=== PATIENT | female | born 1990 | race Caucasian/White ===

== ENCOUNTER 2020-02-20 06:02 | Inpatient (IN) | payer BC, SELFPAY ==
[2020-02-20] VITALS (167 sets, daily range): BP systolic 81–137; BP diastolic 27–89; PULSE 70–159; RESP 18; TEMP 36.8–37.7; O2SAT 82–100; BMI 39.3
[2020-02-20 07:07] LABS: Basophils Percent Auto 0.2 % (0.2-1.2); Eosinophils Absolute Auto 0.3 K/mm3 (0-0.3); Eosinophils Percent Auto 2.7 % (0-4.4); Hematocrit 32.9 % (37.0-47.0); Hemoglobin 10.4 g/dL (12.0-15.0); Immature Granulocyte Percent A 0.8 % (0-0.5); Lymphocytes Absolute Auto 2.26 K/mm3 (0.9-3.2); Mean Corpuscular HGB Conc 31.6 g/dl (32-36); Mean Corpuscular Hemoglobin 26.3 pg (26-34); Mean Corpuscular Volume 83.1 fl (80-100); Mean Platelet Volume 10.3 fl (7.4-10.4); Monocytes Absolute Auto 0.7 K/mm3 (0.1-0.6); Monocytes Percent Auto 5.7 % (2.6-8.5); Neutrophils Absolute Auto 9.1 K/mm3 (1.3-6.7); Neutrophils Percent Auto 72.6 % (45.5-73.1); Platelet Count Result 327 k/mm3 (150-375); Red Blood Count 3.96 M/mm3 (4.2-5.4); Red Cell Distribution Width 14.2 % (11.5-14.5); White Blood Count 12.5 K/mm3 (4.5-10.0)
[2020-02-20] MEDS: LACTATED RINGERS 1,000 ML 125 ML IV CONT ×3 (07:16→11:12)
[2020-02-20] MEDS: OXYTOCIN 30 UNITS/NS 500 ML 30 UNITS/500 ML BAG IV CONT (07:17)
--- NOTE | 2020-02-20 07:20 | LDADM ---
This patient, ANY CARSON, was admitted to Labor/Delivery/Recovery 107 on 02/20/20 at 06:02. Plans for labor, pain management and were discussed with patient. Patient/family oriented to hospital policies and general routines including ID bracelet, bed and alarms, visiting hours, pain management, procedures, bathroom and other care routines, personal items, smoking policy, room service/diet and guest tray routines, security routines, and visiting hours. Patient/Family are encouraged to report perceived risks to care and to ask questions if they do not understand what they are told or what they should do. See OBIX for further documentation.
--- NOTE | 2020-02-20 11:01 | WPDANESEPPF ---
Anes - Initial Pre Proc Eval Date/Time: 02/20/20 11:01 Surgeon: Romel Santoro MD Pre Op Diagnosis: Induction of Labor Patient Data Age: 29 Gender: F Height: 5 ft 6 in Weight: 110.5 kg Last Vital Signs Temp 36.8 C 02/20/20 09:30 Pulse 87 02/20/20 10:59 Resp 18 02/20/20 07:17 BP 106/55 L 02/20/20 10:59 Pulse Ox 98 02/20/20 10:56 Allergies Allergy/AdvReac Type Severity Reaction Status Date / Time adhesive tape Allergy Itching Verified 01/29/20 15:46 latex Allergy Itching Verified 01/29/20 15:46 Penicillins Allergy Hives Verified 01/29/20 15:46 Home Medications Medication Instructions Recorded Confirmed Type PNV cmb#95-ferrous fumarate-FA 1 tablet PO DAILY 02/20/20 02/20/20 History [] cetirizine [Zyrtec] 10 mg PO DAILY PRN 02/20/20 02/20/20 History Laboratory Tests 02/20/20 02/20/20 02/20/20 06:58 06:58 06:58 WBC 12.5 K/mm3 H K/mm3 (4.5-10.0) RBC 3.96 M/mm3 L M/mm3 (4.2-5.4) Hgb 10.4 g/dL L g/dL (12.0-15.0) Hct 32.9 % L % (37.0-47.0) MCV 83.1 fl fl (80-100) MCH 26.3 pg pg (26-34) MCHC 31.6 g/dl L g/dl (32-36) RDW 14.2 % % (11.5-14.5) Plt Count 327 k/mm3 k/mm3 (150-375) MPV 10.3 fl fl (7.4-10.4) Immature Gran % (Auto) 0.8 % H % (0-0.5) Neut % (Auto) 72.6 % % (45.5-73.1) Lymph % (Auto) 18.0 % L % (18.3-44.2) [place] % (Auto) 5.7 % % (2.6-8.5) Eos % (Auto) 2.7 % % (0-4.4) Baso % (Auto) 0.2 % % (0.2-1.2) Lymph # (Auto) 2.26 K/mm3 K/mm3 (0.9-3.2) [place] # (Auto) 0.7 K/mm3 H K/mm3 (0.1-0.6) Eos # (Auto) 0.3 K/mm3 K/mm3 (0-0.3) Baso # (Auto) 0.0 K/mm3 K/mm3 (0.0-0.1) Abs Immat Gran (auto) 0.10 K/mm3 H K/mm3 (0.00-0.031) Absolute Neuts (auto) 9.1 K/mm3 H K/mm3 (1.3-6.7) Absolute Nucleated RBC 0.0 K/mm3 K/mm3 (0.0-0.012) Nucleated RBC % 0.0 % % (0.0-0.2) RPR Pending Blood Type A Positive Antibody Screen Negative Patient hx anesthesia problems: other (agitation) Family hx anesthesia problems: none [facility] Family History Family History Sibling Congenital heart anomaly Epilepsy Mentally challenged Social History Social History Smoking status: Never smoker Second hand tobacco smoke exposure: No Substance use: never Spiritual care concerns: No Anes - Eval Final PreProcedure Day of Procedure 02/20/20 11:01 Patient weight: obese Heart: regular rate and rhythm Lungs: clear to auscultation Neurological: alert and oriented ASA classification: II Emergent: no Anesthetic plan: proceed Anesthesia type and monitoring: regional epidural and standard monitoring Informed Consent: The patient's anesthetic plan and its attendant risks and benefits were discussed with the patient/family/POA. Questions were solicited and answers provided to the satisfaction of the patient/family/POA.
[2020-02-20] MEDS: ONDANSETRON INJ 4 MG/2 ML VIAL IV PUSH (13:33)
--- NOTE | 2020-02-20 16:38 | WPDHPUPDATE1 ---
History and Physical Update Update Date/Time: 02/20/20 16:38 History and Physical has been reviewed, including an updated exam of the patient. There are NO changes in the patient's condition. Risks, benefits, and alternatives have been discussed and questions answered. Patient agrees to proceed with procedure.
--- NOTE | 2020-02-20 16:38 | WPDOBADMIT ---
Obstetrics - Admit Note Admission Note: record reviewed. No pertinent additions to the history and/or any subsequent changes in the physical findings that are not consistent with the expected course of the were found. Additions to the history and/or subsequent changes in the physical findings follow. None.
--- NOTE | 2020-02-20 16:38 | PM.OBPRVD ---
OB - Delivery Note Procedure Route of delivery: Episiotomy description: None Laceration description: None Specimen: No Estimated blood loss (mL): 200 Anesthesia type: Epidural Narrative: Patient prepped and draped in usual sterile manner this procedure. Maternal expulsive efforts readily delivered vertex followed by the rest of baby difficulty. Cord was clamped and cut placenta delivered spontaneously. Cervix vagina vulva were inspected lacerations or tears. Uterus was well contracted hemostatic. Postop condition mother baby both excellent [place] Baby Weeks of gestation at delivery: 39 gender: Female Weight (pounds): 7 Weight (ounces): 2 score one minute: 9 score five minutes: 9
[2020-02-20] MEDS: BENZOCAINE 20% AER SPR (*SP) 56 GM CAN 1 SPRAY TOPICAL (17:04)
[2020-02-20] MEDS: OXYTOCIN 30 UNITS/NS 500 ML 30 UNITS/500 ML BAG 125 UNITS IV CONT (17:04)
[2020-02-20] MEDS: WITCH HAZEL 40 PADS 1 PAD TOPICAL (17:04)
[2020-02-20] MEDS: ACETAMINOPHEN 325 MG TABLET 650 MG PO (23:17)
[2020-02-21 02:37] VITALS: BP 110/60; PULSE 97; RESP 18; TEMP 37.6; O2SAT 97
[2020-02-21] MEDS: IBUPROFEN 600 MG TABLET PO ×3 (03:49→16:06)
[2020-02-21 04:15] LABS: Hematocrit 32.8 % (37.0-47.0); Hemoglobin 10.4 g/dL (12.0-15.0)
[2020-02-21 07:56] LABS: Rapid Plasma Reagin Non-Reactive (NonReactive)
[2020-02-21] MEDS: MULTIVIT/MIN/PREN/FOL AC/IRON TABLET 1 TAB PO (09:57)
[2020-02-21] MEDS: DOCUSATE SODIUM 100 MG CAPSULE PO ×2 (09:57→16:06)
[2020-02-21 11:22] VITALS: BP 96/57; PULSE 75; RESP 18; TEMP 36.6; O2SAT 96
--- NOTE | 2020-02-21 12:31 | PM.OBPNVD ---
OB - PN: Subj Subjective Date/time seen: 02/21/20 12:31 Interval history: 29yo s/p on 02/19 Patient comments: no complaints, pain well controlled and tolerating diet Geraldine baby status: doing well and nursing well feeding status: exclusively breast feeding Narrative: Doing well, no complaints. tolerating diet, ambulating. Would like to go home after 24hrs. OB - PN: Obj Data Labs CBC & Chem 7: 02/21/20 03:51 Labs: Laboratory Results - last 24 hr 02/20/20 02/21/20 06:58 03:51 Hgb 10.4 L Hct 32.8 L RPR Non-reactive OB - PN A/P Assessment and Plan (1) (normal spontaneous vaginal delivery): Code(s): O80 - Encounter for full-term uncomplicated delivery Status: Acute Assessment and Plan: Routine post care pain management ambulate Ok for DC home after 24hrs Time Spent With Patient Time: Total time spent is greater than 50% in coordination of care (as documented) at patient's floor/unit and/or counseling patient: Exam Const: General: comfortable, no acute distress and alert Orientation/consciousness: patient oriented x3 Resp: Effort & Inspection: normal respiratory effort Cardio: Rate: regular rate GI: Other: soft, nontender, nondistended, fundus firm Psych: Appearance: grossly normal Mental Status: mental status grossly normal Affect: normal affect Attitude: cooperative Judgement: Good judgement present (Psych)
--- NOTE | 2020-02-21 12:33 | P.DS_ITS ---
DS: Admitting Diagnosis Admitting Diagnosis Admitting Diagnosis: Induction of labor, term DS: Discharge Diagnosis Discharge Diagnosis (1) (normal spontaneous vaginal delivery): Code(s): O80 - Encounter for full-term uncomplicated delivery Status: Acute OB - DS: Summary OB Procedures : None OB Procedures Intrapartum: Spontaneous Vag Delivery OB Procedures: : None Peripartum Data complications: none Status at Discharge Overall status at discharge: patient is progressing back to baseline Time Spent with Patient Time attestation: Total time spent providing and/or coordinating discharge services: Exam Const: General: comfortable, no acute distress and alert Orientation/consciousness: patient oriented x3 Resp: Effort & Inspection: normal respiratory effort Cardio: Rate: regular rate GI: Other: soft, nontender, nondistended, fundus firm Neuro: General: patient oriented x3 Psych: Appearance: grossly normal Mental Status: mental status grossly normal Affect: normal affect Attitude: cooperative Judgement: Good judgement present (Psych) DS: Data Data Completed and Pending Labs on day of discharge: Labs from last 24 hours 02/21/20 02/20/20 03:51 06:58 Hgb 10.4 L Hct 32.8 L RPR Non-reactive Discharge Plan Discharge Attending physician on discharge: Romel Santoro Discharging Clinician: Chato Piedra Patient Disposition: Home, Self-Care Activity: as tolerated Diet: regular Patient Instructions: Antibiotic Form Stand Alone Forms: General Discharge Information Follow-up/Referrals: Romel Santoro MD [Physician] - Discharge Medications: New docusate sodium 100 mg Capsule 100 mg PO BID PRN (Reason: Constipation) Qty: 60 RF: 0 ibuprofen 600 mg Tablet 600 mg PO Q6H PRN (Reason: Cramping) Qty: 60 RF: 0 Continued PNV cmb#95-ferrous fumarate-FA [] 28 mg iron- 800 mcg Tablet 1 tablet PO DAILY RF: 0 Zyrtec 10 mg Capsule 10 mg PO DAILY PRN (Reason: Allergy Symptoms) RF: 0 Date of admission: 02/20/20 06:02 Primary Care Provider: PHYSICIAN,[facility] SWITCH ADJUSTER Admitting Provider: Romel Santoro Attending physician on admission: Romel Santoro
--- NOTE | 2020-02-21 13:30 | PC.NURSE ---
Consulted with patient, upon entering mother has to breast in shallow latch reporting tenderness with feeding. Reviewed is shallow and may need assist obtaining and maintaining deep latch. Reviewed feeding cues, frequencies, duration of feedings, feeding elimination flow sheet, and signs of adequate intake. Demonstrated stimulation techniques to wake infant for feeding. . Reviewed positioning/alignment in cross cradle, holding breast in U hold and guided asymmetrical latch on. Infant was able to latch correctly. nursed eagerly, with steady draws and frequent swallowing noted. Reviewed signs of a correct latch, effective nursing and suck swallow ratio. was able to maintain latch without discomfort to mother. Nipple care reviewed. Demonstrated how to adjust latch more deeply while feeding. Instructed mother to call out for RN assistance if she is unable to latch infant for feeding or she has discomfort with nursing. Instructed feeding should be initiated three hours from start of last feeding or if feeding cues are noted before. Mother voiced understanding of information shared.
--- NOTE | 2020-02-21 14:48 | WPDANLDPN2 ---
Anes-Prog Note L&D Date/Time: 02/21/20 14:48 Comfortable throughout: labor and delivery Epidural/Spinal procedure site: clean & non-tender Neuro status: Neuro function grossly intact. Cardiovascular status: normal Respiratory status: normal Airway patency: baseline Mental status: baseline Post-Op hydration status: normal Vital Signs: Last Vital Signs Temp 97.9 F 02/21/20 11:22 Pulse 75 02/21/20 11:22 Resp 18 02/21/20 11:22 BP 96/57 L 02/21/20 11:22 Pulse Ox 96 02/21/20 11:22 I/O: Intake & Output 02/20/20 02/21/20 02/21/20 23:59 07:59 15:59 Intake Total 1100 Output Total 31 Balance 1069 Patient feedback: Patient satisfied with anesthetic care.
[2020-02-22 12:41] VITALS: BP 113/65; PULSE 80; RESP 20
== END 2020-02-21 18:35 | disposition home or self-care (01) | DRG 807 ==
LOC: ANHOB2 02-21 12:55 → ANHLDR 02-22 13:14 → ANHOB2 02-22 13:14
PROVIDERS: Admitting Provider Obstetrics & Gynecology; Visit Provider Obstetrics & Gynecology
DX: O99.214 Obesity complicating childbirth (principal); Z37.0 Single live birth; Z3A.39 39 weeks gestation of pregnancy; E66.9 Obesity, unspecified
CPT/HCPCS: 36415; 85014; 85018; 85025; 86592; 86850; 86900; 86901; A9270; J2405; J2590; J2795; J7120

== ENCOUNTER 2023-09-24 10:29 | Emergency (ER) | payer OTHER, SELFPAY ==
[2023-09-24 10:36] VITALS: BP 127/82; PULSE 85; RESP 18; TEMP 36.5; O2SAT 99
--- NOTE | 2023-09-24 11:02 | ED.GENADULT ---
HPI - General Adult General Chief complaint: Urogenital-Female Stated complaint: Urinary Problem Source: patient Mode of arrival: ambulatory Limitations: no limitations History of Present Illness HPI narrative: Patient presents for evaluation of urinary symptoms since yesterday. Symptoms urinary frequency, urgency, dysuria, low back pain and suprapubic pressure. Fever, chills, nausea, vomiting, vaginal discharge. She has an IUD so is not sure when her last period was. Related Data Home Medications Medication Instructions Recorded Confirmed levonorgestrel 21 mcg/24 hours (8 1 device intrauterine ONCE 09/24/23 09/24/23 yrs) 52 mg intrauterine device (Mirena) Allergies Allergy/AdvReac Type Severity Reaction Status Date / Time adhesive tape Allergy Itching Verified 09/24/23 10:46 latex Allergy Itching Verified 09/24/23 10:46 Penicillins Allergy Hives Verified 09/24/23 10:46 Review of Systems Review of Systems: CONSTITUTIONAL: Denies fever, chills, or sweats. EYES: Denies visual changes, redness, or discharge. ENT: Denies rhinorrhea, congestion, sore throat, or otalgia. CARDIOVASCULAR: Denies chest pain, palpitations, or edema. RESPIRATORY: Denies cough or dyspnea. GASTROINTESTINAL: Denies abdominal pain, nausea, vomiting, or diarrhea. GENITOURINARY: Reports urinary frequency, urgency and dysuria. SKIN: Denies rash or itching. MUSCULOSKELETAL: Reports low back pain. Denies joint pain, or myalgia. NEUROLOGIC: Denies headache, numbness, dizziness, or weakness. PSYCHIATRIC: Denies anxiety or depression. [facility] Past Medical History Medical History No pertinent past medical history Surgical History Surgical History No pertinent past surgical history Family History Family History Sibling Congenital heart anomaly Epilepsy Mentally challenged Social History Social History Smoking status: Never smoker Second hand tobacco smoke exposure: No Substance use: never Spiritual care concerns: No Exam Narrative: GENERAL: Well-appearing, well-nourished, and in no acute distress. HEAD: Normocephalic, atraumatic. EYES: PERRLA and EOMI. ENT: Nares clear, no rhinorrhea or epistaxis. Mucous membranes moist. Oropharynx without tonsillar hypertrophy exudate or other lesions. Bilateral TMs pearly banegas nonbulging NECK: Supple. No adenopathy or masses. No carotid bruits or JVD CHEST: Clear to auscultation. No respiratory distress. No wheezes rales or rhonchi HEART: Regular rate and rhythm. No murmur heard. Normal peripheral pulses. ABDOMEN: Soft, nontender, nondistended, normal active bowel sounds. EXTREMITIES: Normal range of motion. No edema. BACK: No CVA tenderness SKIN: Warm, dry, no rash. NEURO: No focal deficits. Alert and oriented x3. PSYCH: Normal mood and affect. Course Course Emergency Course: This is a 30-year-old female who presented for evaluation of urinary symptoms. She has leukocytes in her urine today. Will treat for UTI with Macrobid. Send urine for culture. Follow-up with primary provider. Go to the ER for worsening symptoms. Patient in agreement plan of care. Level of Care: Express Care Visit Vital Signs Vital signs: Vital Signs Temperature 36.5 C 09/24/23 10:36 Pulse Rate 85 09/24/23 10:36 Respiratory Rate 18 09/24/23 10:36 Blood Pressure 127/82 09/24/23 10:36 Pulse Oximetry 99 09/24/23 10:36 Oxygen Delivery Room Air 09/24/23 10:36 Temperature 36.5 C 09/24/23 10:36 Pulse Rate 85 09/24/23 10:36 Respiratory Rate 18 09/24/23 10:36 Blood Pressure 127/82 09/24/23 10:36 Pulse Oximetry 99 09/24/23 10:36 Oxygen Delivery Room Air 09/24/23 10:36 Medical Decision Making Vital Sign
== END 2023-09-24 11:21 | disposition home or self-care (01) ==
PROVIDERS: Emergency Provider Nurse Practitioner
DX: N39.0 Urinary tract infection, site not specified (principal); B96.20 Unspecified Escherichia coli [E. coli] as the cause of diseases classified elsewhere
CPT/HCPCS: 81003; 87077; 87086; 87186; 99203; G0463

== ENCOUNTER 2025-08-05 13:15 | Emergency (ER) | payer OTHER, SELFPAY ==
[2025-08-05 13:16] VITALS: BP 135/80; PULSE 91; RESP 18; TEMP 36.6; O2SAT 99
[2025-08-05 13:30] VITALS: BP 119/77; PULSE 86; RESP 17; O2SAT 97
[2025-08-05] MEDS: SODIUM CHLORIDE 0.9% IV 1,000 ML 999 ML IV CONT (13:36)
[2025-08-05 13:37] LABS: Hematocrit 42.3 % (35.0-49.0); Hemoglobin 14.0 g/dL (12.0-15.0); Immature Granulocyte Percent A 0.2 % (0.0-0.0); Lymphocytes Absolute Auto 2.28 K/mm3 (1.10-4.50); Mean Corpuscular HGB Conc 33.1 g/dL (32-36); Mean Corpuscular Hemoglobin 28.7 pg (27.0-31.0); Mean Corpuscular Volume 86.7 fL (78.0-102.0); Nucleated Red Blood Cells Absolute Auto 0.00 K/mm3 (0.00-0.00); Nucleated Red Blood Cells Perc 0.0 % (0-0.0); Platelet Count Result 420 K/mm3 (150-420); Red Blood Count 4.88 M/mm3 (4.20-5.40); White Blood Count 12.0 K/mm3 (4.8-10.8)
[2025-08-05 13:48] LABS: Add Urine Microscopic? YES; Appearance Urine Clear (Clear); Glucose Urine UA Negative (Negative); Leukocyte Esterase Ur Negative LEU/UL (Negative); Nitrate Urine Negative (Negative); Specific Grav Ur >= 1.030 (1.010-1.020)
[2025-08-05 13:52] LABS: Pregnancy On Board Control Positive
[2025-08-05 14:00] VITALS: BP 110/65; PULSE 80; RESP 17; O2SAT 99
[2025-08-05 14:30] VITALS: BP 109/70; PULSE 73; RESP 16; O2SAT 100
[2025-08-05 14:53] LABS: Alanine Aminotransferase 22 U/L (6-35); Albumin Level 4.7 g/dL (3.5-5.1); Alkaline Phosphatase 57 U/L (38-126); Anion Gap 14 mmol/L (4-12); Aspartate Amino Transferase 40 U/L (14-36); Blood Urea Nitrogen 13 mg/dL (7-17); Calcium 9.0 mg/dL (8.4-10.2); Carbon Dioxide 20 mmol/L (22-30); Chloride 111 mmol/L (98-107); Estimated CRCL calculation 99 ml/min; Estimated Glomerular Filt Rate > 60; Glucose 109 mg/dL (65-110); Osmolality Calculated 301 mOsm/kg (285-295); Potassium 3.8 mmol/L (3.4-5.0); Sodium 145 mmol/L (137-145); Total Protein 8.0 g/dL (6.3-8.2)
[2025-08-05 15:00] VITALS: BP 110/91; PULSE 76; RESP 16; O2SAT 99
--- NOTE | 2025-08-05 15:00 | ED.GENADULT ---
HPI - General Adult General Chief complaint: Abdominal Pain Stated complaint: abdominal pain Time Seen by Provider: 08/05/25 13:26 Source: patient Mode of arrival: ambulatory Limitations: no limitations History of Present Illness HPI narrative: 34-year-old otherwise healthy here with a complains of nausea, vomiting, diarrhea upper abdominal cramping on and off for past 4 days. She denies any fever or chills no recent antibiotic use. No other family member is sick. Denies being lightheaded or dizzy. Onset (ago): day(s) (4) Severity: mild Quality: aching Pain Consistency: intermittent Relieving factors: none Exacerbating factors: none Associated symptoms: denies other symptoms Treatments prior to arrival: none Related Data Home Medications ?Medication ?Instructions ?Recorded ?Confirmed ?Last Taken ?Type levonorgestrel (Mirena) 1 device intrauterine ONCE 09/24/23 01/08/25 Unknown History cetirizine 10 mg capsule (Zyrtec) 10 mg PO DAILY PRN 01/03/24 01/08/25 Unknown History semaglutide (weight loss) 0.25 0.25 mg subcut WEEKLY 01/08/25 01/08/25 Unknown History mg/0.5 mL subcutaneous pen injector (Wegovy) Allergies Allergy/AdvReac Type Severity Reaction Status Date / Time adhesive tape Allergy Itching Verified 08/05/25 13:16 latex Allergy Itching Verified 08/05/25 13:16 Penicillins Allergy Hives Verified 08/05/25 13:16 Review of Systems Review of Systems: All systems reviewed & are unremarkable except as noted in HPI and below Constitutional: Constitutional: Reports no additional constitutional complaints Eyes: Eyes: Reports no additional eye complaints ENT: Reports system reviewed and no additional complaints, except as documented Cardiovascular: Cardiovascular: Reports no additional cardiovascular complaints Respiratory: Respiratory: Reports no additional respiratory complaints Gastrointestinal: Gastrointestinal: Reports as per HPI Musculoskeletal: Musculoskeletal: Reports no additional musculoskeletal complaints Neurologic: Reports system reviewed and no additional complaints, except as documented [facility] Past Medical History Medical History Thyroid cyst (~2015) drained Mental disorder Anxiety No pertinent past medical history Surgical History Surgical History History of gynecological procedure (03/25/20) mirena iud insertion History of adenoidectomy History of tonsillectomy History of hysteroscopy (~2014) suction D&C missed AB History of hysteroscopy (~2012) suction D&C Missed AB No pertinent past surgical history Family History Family History Sibling Congenital heart anomaly Epilepsy Mentally challenged Grandparent Diabetes mellitus paternal grandmother Hypertension maternal and paternal grandparents Cerebrovascular accident paternal grandmother Acute myocardial infarction maternal grandmother Social History Social History (Updated 01/08/25 @ 08:30 by Elzbieta Almanzar [facility]) Smoking status: Never smoker Second hand tobacco smoke exposure: No Alcohol intake: former Alcohol use details: 1 a month Substance use: never Substance use type: does not use Do You Feel Safe in your Home?: Yes Lack of Transportation: No Lack of Food: Never True Current Housing: I Have Housing Concerned About Future Housing: No Difficulty Paying Gas/Electric Bills: No Difficulty Paying for Meds: No Currently Unemployed: No Education: High School Diploma/GED Difficulty w/ Childcare or Family Care: No Living arrangements: with family Additional living arrangements comments: 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 HEAD: Normocephalic, atraumatic. EYES: PERRLA and EOMI. ENT: Nares clear, no rhinorrhea or epistaxis. Mucous membranes moist. NECK: Supple. CHEST: Clear to auscultation. No respiratory distress. HEART: Regular rate and rhythm. No murmur heard. Normal peripheral pulses. ABDOMEN: Soft, nontender, nondistended, normal active bowel sounds. EXTREMITIES: Normal range of motion. No edema. SKIN: Warm, dry, no rash. NEURO: No focal deficits. Alert and oriented x3. PSYCH: Normal mood and affect. Course Course Emergency Course: Patient had no further episodes of nausea, vomiting or diarrhea was she was here in the ER I did fever L of normal saline she started feeling better informed her about the lab work. Advised her to drink more fluids as tolerated take Zofran as needed. Vital Signs Vital signs: Vital Signs Temperature 36.6 C 08/05/25 13:16 Pulse Rate 91 08/05/25 13:16 Respiratory Rate 18 08/05/25 13:16 Blood Pressure 135/80 08/05/25 13:16 Pulse Oximetry 99 08/05/25 13:16 Oxygen Delivery Room Air 08/05/25 13:16 Temperature 36.6 C 08/05/25 13:16 Pulse Rate 91 08/05/25 13:16 Respiratory Rate 18 08/05/25 13:16 Blood Pressure 135/80 08/05/25 13:16 Pulse Oximetry 99 08/05/25 13:16 Oxygen Delivery Room Air 08/05/25 13:16 Medical Decision Making Vital Signs Vital Signs: Vital Signs Temperature 36.6 C 08/05/25 13:16 Pulse Rate 91 08/05/25 13:16 Respiratory Rate 18 08/05/25 13:16 Blood Pressure 135/80 08/05/25 13:16 Pulse Oximetry 99 08/05/25 13:16 Oxygen Delivery Room Air 08/05/25 13:16 Temperature 36.6 C 08/05/25 13:16 Pulse Rate 91 08/05/25 13:16 Respiratory Rate 18 08/05/25 13:16 Blood Pressure 135/80 08/05/25 13:16 Pulse Oximetry 99 08/05/25 13:16 Oxygen Delivery Room Air 08/05/25 13:16 Lab Data Lab results reviewed: Yes I reviewed the patient's lab results. 08/05/25 13:30 08/05/25 13:30 Labs: Lab Results 08/05/25 Range/Units 13:30 WBC 12.0 H (4.8-10.8) K/mm3 RBC 4.88 (4.20-5.40) M/mm3 Hgb 14.0 (12.0-15.0) g/dL Hct 42.3 (35.0-49.0) % MCV 86.7 (78.0-102.0) fL MCH 28.7 (27.0-31.0) pg MCHC 33.1 (32-36) g/dL RDW 12.2 (11.6-14.4) % Plt Count 420 (150-420) K/mm3 MPV 10.8 (9.2-11.8) fl Immature Gran % (Auto) 0.2 H (0.0-0.0) % Neut % (Auto) 68.9 (50.0-70.0) % Lymph % (Auto) 19.1 (18.0-42.0) % [place] % (Auto) 5.4 (2.0-11.0) % Eos % (Auto) 6.1 H (1.0-6.0) % Baso % (Auto) 0.3 (0.0-1.0) % Lymph # (Auto) 2.28 (1.10-4.50) K/mm3 [place] # (Auto) 0.64 (0.10-0.90) K/mm3 Eos # (Auto) 0.73 H (0.02-0.50) K/mm3 Baso # (Auto) 0.04 (0.00-0.10) K/mm3 Abs Immat Gran (auto) 0.02 H (0.00-0.00) K/mm3 Absolute Neuts (auto) 8.24 H (1.70-7.20) K/mm3 Absolute Nucleated RBC 0.00 (0.00-0.00) K/mm3 Nucleated RBC % 0.0 (0-0.0) % Sodium 145 (137-145) mmol/L Potassium 3.8 (3.4-5.0) mmol/L Chloride 111 H (98-107) mmol/L Carbon Dioxide 20 L (22-30) mmol/L Anion Gap 14 H (4-12) mmol/L BUN 13 (7-17) mg/dL Creatinine 0.78 (0.7-1.0) mg/dL Estim Creat Clear Calc 99 ml/min Estimated GFR > 60 (59 - ) Glucose 109 (65-110) mg/dL Calculated Osmolality 301 H (285-295) mOsm/kg Calcium 9.0 (8.4-10.2) mg/dL Total Bilirubin 1.7 H (0.2-1.3) mg/dL AST 40 H (14-36) U/L ALT 22 (6-35) U/L Alkaline Phosphatase 57 (38-126) U/L Total Protein 8.0 (6.3-8.2) g/dL Albumin 4.7 (3.5-5.1) g/dL Urine Color Yellow (Yellow) Urine Appearance Clear (Clear) Urine pH 6.0 (5.0-8.0) Ur Specific [place] >= 1.030 H (1.010-1.020) Urine Protein 1+ H (Negative) Urine Glucose (UA) Negative (Negative) Urine Ketones Negative (Negative) Ur Blood (Man) Negative (Negative) Urine Nitrate Negative (Negative) Urine Bilirubin 1+ H (Negative) Urine Urobilinogen 0.2 (0.2-1.0) mg/dL Leukocyte Esterase Rfl Negative (Negative) LUCAS/UL Urine RBC 0-2 (0-2) /hpf Urine WBC 0-3 (0-3) /hpf Ur Squamous Epith Cells Rare (Few) /hpf Amorphous Sediment Moderate H (None) Urine Bacteria 2+ H (None) /hpf Urine Test Negative Discharge Plan Discharge Clinical Impression: Gastroenteritis Patient Disposition: Home Condition: Stable Instructions: Gastroenteritis (DC) Patient Language: Tajik Prescriptions: New ondansetron 4 mg tablet,disintegrating 4 mg PO Q6-8H PRN (Reason: nausea and vomiting) Qty: 14 0RF No Action Mirena 21 mcg/24 hours (8 yrs) 52 mg Intrauterine Device 1 device INTRAUTERINE ONCE Rx Instructions: as a single dose Zyrtec 10 mg capsule 10 mg PO DAILY PRN Wegovy 0.25 mg/0.5 mL pen injector 0.25 mg subcut WEEKLY Rx Instructions: administer weeks 1 through 4 of therapy Follow-up/Referrals: Aiyana,MD Gordy [Primary Care Provider, Unknown] Time of Disposition: 15:02
[2025-08-05 15:15] VITALS: BP 110/91; PULSE 76; RESP 16; TEMP 36.6; O2SAT 99
[2025-08-05 17:43] LABS: Bilirubin,Total 0.8 mg/dL (0.2-1.3)
== END 2025-08-05 15:15 | disposition home or self-care (01) ==
PROVIDERS: Emergency Provider Family Medicine; PCP Internal Medicine
DX: K52.9 Noninfective gastroenteritis and colitis, unspecified (principal)
CPT/HCPCS: 36415; 80053; 81001; 81025; 85025; 96360; 99283; J2405; J7030